=== PATIENT | male | born 1965 | race Caucasian/White ===

== ENCOUNTER 2019-05-05 09:06 | Day surgery (SDC) | payer BC ==
[2019-05-01 14:37] VITALS: BMI 27.0
[2019-05-05] MEDS ORDERED: ONDANSETRON 4 MG/2 ML VIAL IVPUSH PRN (10:34)
[2019-05-05] MEDS ORDERED: ROPIVACAINE HCL 0.5% 30ML VIAL ONE (10:38)
[2019-05-05] MEDS ORDERED: MIDAZOLAM HCL 2 MG/2 ML SINGLE DOSE VIAL ONE ×2 (10:38→11:56)
[2019-05-05] MEDS ORDERED: LIDOCAINE 1% P/F 10 MG/ML VIAL ONE (10:43)
[2019-05-05] MEDS ORDERED: LACTATED RINGERS SOLUTION 1,000 ML IV SCH (10:45)
[2019-05-05] MEDS ORDERED: ceFAZolin SODIUM 1 GM VIAL ONE (11:13)
[2019-05-05] MEDS ORDERED: KETOROLAC TROMETHAMINE 30 MG/1 ML VIAL ONE (11:13)
[2019-05-05 13:35] VITALS: PULSE 60
[2019-05-05 14:15] VITALS: BP 118/70; TEMP 97.9
--- NOTE | 2019-05-05 16:14 | OP ---
DATE OF OPERATION: 05/05/2019 Done at [facility] SURGEON: Asim Nieves MD SUPERVISOR TITLE: EDUARDA Lira PREOPERATIVE DIAGNOSES: 1. Right ankle Jeff deformity/calcaneal osteophyte. 2. Right Achilles partial tear with extensive scar tissue. POSTOPERATIVE DIAGNOSES: 1. Right ankle Jeff deformity/calcaneal osteophyte. 2. Right Achilles partial tear with extensive scar tissue. PROCEDURES: 1. Right ankle open Jeff removal with osteotomy of calcaneus. 2. Debridement of Achilles tendon repair to calcaneus distal insertion. FINDINGS: 1. Excessive scar tissue throughout the peritenon tendon itself. 2. Jeff deformity/calcaneal osteophyte. 3. Thickened scar tissue distal 8 cm Achilles tendon. DESCRIPTION OF PROCEDURE: Patient was taken to the operating room where the left lower extremity was prepped and draped in a sterile fashion. Patient was placed in a prone position. Tourniquet was inflated to 250 mmHg. Incision was made from the distal portion of the calcaneus to 6 cm proximal to the insertion. Tendon tissue was identified and brought down to the calcaneus on the peritenon. The tendon was debulked of thickened scar tissue medial, lateral, and posteriorly. The tendon was split. The distal calcaneus was identified, and the osteotome was used to remove the Jeff deformity with an osteotomy performed on the distal calcaneus insertion. Rongeur was then to remove the medial and lateral portions through separate side splits medially and laterally. Wound was irrigated with copious amounts of irrigation. A rasp was used to smooth the edges, and bone wax was placed over the bone to prevent bleeding. The osteotomy was confirmed with a C-arm fluoroscopy. Due to the partial disruption of the tendon distally, and All-Suture anchor was placed into the distal calcaneus with two 2-0 FiberWire, which were secured with interlocking stitch to the distal Achilles securing it to the bleeding bone bed. Wound was irrigated with copiously again. Layered closure with 2-0 Vicryl and 3-0 nylon was performed. Sterile dressing and splint were placed, and patient was transferred to the recovery room without complication. The PA listed above was present and assisted at surgery. Their presence was absolutely medically necessary for the completion of the procedure. They helped hold the arthroscopy, pass instruments (and implants when indicated) and the procedure could not have been completed without their assistance. ASIM NIEVES M.D. [id number]
--- NOTE | 2019-05-09 15:05 | PATH ---
Surgical Pathology Report Patient Name: JAMEL ECHEVARRIA Med. Rec. #: [id number] /Age/Gender: 1965 (Age: 54) / M Account: [id number] Location: [facility] Taken: 05/05/2019 Received: 05/05/2019 Reported: 05/09/2019 Physicians: Asim Riddle M.D. Specimen(s) Received A: RIGHT ANKLE BONE B: RIGHT ACHILLES SCAR TISSUE Clinical History Right Achilles partial tear Final Diagnosis A. BONE, RIGHT ANKLE, EXCISION: BONE AND CARTILAGE WITH NO PATHOLOGIC CHANGES. B. RIGHT ACHILLES SCAR TISSUE, EXCISION: FIBROTIC SYNOVIUM AND DENSE ORGANIZED FIBROUS CONNECTIVE TISSUE. Electronically Signed Esau Kay M.D. Gross Description A. Received in formalin labeled "right ankle bone," is a 2.8 x 2.0 x 0.3 cm aggregate of lopes bone fragments. A construction sales representative portion is submitted in one cassette, following decalcification. B. Received in formalin labeled "right Achilles scar tissue," is a 3.5 x 3.3 x 0.5 cm aggregate of lopes fibrous tissue fragments. Keller Machine Operator sections are submitted in one cassette. DL/05/08/2019 saudi/05/08/2019
== END 2019-05-05 14:15 | disposition home or self-care (01) ==
LOC: FASU 09:06
PROVIDERS: ATTEND Orthopaedic Surgery
PROC: 0QBL0ZZ Excision of Right Tarsal, Open Approach (ICD-10-PCS; 2019-05-05)
PROC: 0LQN0ZZ Repair Right Lower Leg Tendon, Open Approach (ICD-10-PCS; principal; 2019-05-05 11:30)
DX: S86.011A Strain of right Achilles tendon, initial encounter (principal); M21.6X1 Other acquired deformities of right foot; M77.31 Calcaneal spur, right foot; M67.873 Other specified disorders of tendon, right ankle and foot; X58.XXXA Exposure to other specified factors, initial encounter; Y93.9 Activity, unspecified; Y92.9 Unspecified place or not applicable
CPT/HCPCS: 73610-TC-RT-FY; 88304-TC; 88311-TC; 94760